=== PATIENT | female | born 1985 | race Caucasian/White ===

== ENCOUNTER 2018-06-20 01:35 | Outpatient (CLI) | payer OTHER | END 2018-06-20 01:36 | disposition critical access hospital (66) | LOC: EMS 01:35 | PROVIDERS: ATTEND Surgery | DX: R11.2 Nausea with vomiting, unspecified (principal); R50.9 Fever, unspecified; R19.7 Diarrhea, unspecified; M54.5 Low back pain | CPT/HCPCS: A0425; A0427 ==

== ENCOUNTER 2018-06-20 01:56 | Emergency (ER) | payer OTHER ==
--- NOTE | 2018-06-20 02:49 | ED Physician Documentation ---
PD HPI NVD - Stated complaint Stated Complaint: N/V/D - Chief complaint Chief Complaint: Abd Pain - History obtained from History obtained from: Patient - History of Present Illness Timing - onset: Enter time (20:00) Timing - details: Abrupt onset Pain level now: 6 Associated symptoms: Abdominal pain, Dizzy. No: Fever Improved by: Laying still Worsened by: Moving (ambulation) Similar symptoms before: Has not had sx before Recently seen: Not recently seen - Additonal information Additional information: c/o sudden onset 8 PM tonight nausea, vomiting, diarrhea with abdominal cramping that radiates around to mid/low back. lightheaded/dizzy when standing and ambulating Review of Systems Constitutional: reports: Myalgias, Sweats. denies: Fever, Chills Cardiac: reports: Reviewed and negative Respiratory: reports: Reviewed and negative GI: reports: Abdominal Pain, Nausea, Vomiting, Diarrhea : denies: Dysuria, Frequency Musculoskeletal: reports: Back pain PD PAST MEDICAL HISTORY - Past Medical History Past Medical History: Yes Cardiovascular: None Respiratory: None Neuro: None Endocrine/Autoimmune: None GI: None AIRPLANE PILOT: None : None HEENT: None Psych: Post traumatic stress disorder Musculoskeletal: None Derm: None - Past Surgical History Past Surgical History: No - Present Medications Home Medications: Ambulatory Orders Medication Instructions Recorded Confirmed Diphenoxylate/Atropine [Lomotil] 1 each PO QID PRN #10 tablet 06/20/18 Promethazine [Phenergan] 25 mg PO Q6H PRN #10 tab 06/20/18 - Allergies Allergies/Adverse Reactions: Allergies Allergy/AdvReac Type Severity Reaction Status Date / Time No Known Drug Allergies Allergy Verified 06/20/18 01:59 - Social History Does the pt smoke?: No Smoking Status: Never smoker Does the pt drink ETOH?: Yes Does the pt have substance abuse?: No - Immunizations Immunizations are current?: Yes - POLST Patient has POLST: No PD ED PE NORMAL - Vitals Vital signs reviewed: Yes - General General: Alert and oriented X 3, Well developed/nourished, Other (appears uncomfortable and anxious) - HEENT HEENT: PERRL, EOMI, Moist mucous membranes - Neck Neck: Supple, no meningeal sign - Cardiac Cardiac: RRR, No murmur, No gallop, No rub - Respiratory Respiratory: No respiratory distress, Clear bilaterally - Abdomen Abdomen: Normal bowel sounds, Soft, Non tender, Non distended - Back Back: No CVA TTP - Derm Derm: Normal color, Warm and dry Results - Vitals Vitals: Oxygen O2 Source Room air - Labs Labs: Laboratory Tests 06/20/18 06/20/18 03:26 03:26 WBC 8.6 RBC 4.11 L Hgb 13.7 Hct 39.2 MCV 95.3 MCH 33.3 H MCHC 35.0 RDW 12.4 Plt Count 174 MPV 7.9 Neut # (Auto) 8.0 H Lymph # (Auto) 0.3 L [place] # (Auto) 0.2 Eos # (Auto) 0.0 Baso # (Auto) 0.0 Absolute Nucleated RBC 0.00 Nucleated RBC % 0.0 Sodium 138 Potassium 3.4 L Chloride 107 Carbon Dioxide 18 L Anion Gap 13.0 BUN 17 Creatinine 0.8 Estimated GFR (MDRD) 83 L Glucose 153 H Calcium 8.9 Total Bilirubin 1.4 H AST 24 ALT 16 Alkaline Phosphatase 47 Total Protein 7.4 Albumin 4.3 Globulin 3.1 Albumin/Globulin Ratio 1.4 Lipase 26 PD MEDICAL DECISION MAKING - ED course Complexity details: reviewed results, re-evaluated patient, considered diffe rential, d/w patient ED course: appears comfortable and reports significant improvement after IV fluids, toradol, zofran, and phenergan Departure - Departure Disposition: 01 Home, Self Care Clinical Impression: Gastroenteritis Condition: Good Instructions: ED Gastroenteritis Viral Prescriptions: Diphenoxylate/Atropine [Lomotil] 1 each PO QID PRN #10 tablet PRN Reason: Diarrhea Promethazine [Phenergan] 25 mg PO Q6H PRN #10 tab PRN Reason: Nausea / Vomiting Discharge Date/Time: 06/20/18 06:10
[2018-06-20] MEDS ORDERED: SODIUM CHLORIDE 0.9% 1,000 ML IV STA (03:10)
[2018-06-20] MEDS ORDERED: KETOROLAC 30 MG/ML VIAL IVP STA (03:10)
[2018-06-20] MEDS ORDERED: ONDANSETRON 4 MG/2 ML VIAL IVP STA (03:10)
[2018-06-20 03:35] LABS: BASOPHILS % (AUTO) 0.5 %; EOSINOPHILS % (AUTO) 0.1 %; HGB - HEMOGLOBIN 13.7 g/dL (12.0-16.0); LYMPHOCYTES # (AUTO) 0.3 10^3/uL (1.5-3.5); LYMPHOCYTES % (AUTO) 3.4 %; MEAN CORPUSCULAR HEMOGLOBIN 33.3 pg (27.0-31.0); MEAN CORPUSCULAR VOLUME 95.3 fL (81.0-99.0); MEAN PLATELET VOLUME 7.9 fL (7.9-10.8); MONOCYTES # (AUTO) 0.2 10^3/uL (0.0-1.0); MONOCYTES % (AUTO) 2.8 %; NEUTROPHILS % (AUTO) 93.2 %; PLT - PLATELET COUNT 174 10^3/uL (130-450); RED BLOOD COUNT 4.11 10^6/uL (4.20-5.40); RED CELL DISTRIBUTION WIDTH 12.4 % (12.0-15.0); WHITE BLOOD COUNT 8.6 x10^3/uL (4.8-10.8)
[2018-06-20 03:44] LABS: ALBUMIN 4.3 g/dL (3.2-5.5); ALBUMIN/GLOBULIN RATIO 1.4 (1.0-2.2); BILIRUBIN,TOTAL 1.4 mg/dL (0.2-1.0); CALCIUM 8.9 mg/dL (8.5-10.3); CREATININE 0.8 mg/dL (0.4-1.0); TOTAL PROTEIN 7.4 g/dL (6.7-8.2)
[2018-06-20] MEDS ORDERED: PROMETHAZINE INJ 25 MG in SODIUM CHLORIDE 0.9% 50 ML IV STA (04:12)
[2018-06-20 05:25] VITALS: BP 102/67
== END 2018-06-20 06:10 | disposition home or self-care (01) ==
LOC: ED 01:56
DX: K52.9 Noninfective gastroenteritis and colitis, unspecified (principal)
CPT/HCPCS: 36415; 80053; 83690; 85025; 96361; 96365; 96375; 99283; 99284; J7040